=== PATIENT | male | born 1990 | race Caucasian/White ===

== ENCOUNTER 2021-01-04 12:39 | Emergency (ER) | payer MEDICAID ==
[~2021-01-04] VITALS: Ht 157.5 cm; Wt 70.0 kg
[2021-01-04] MEDS ORDERED: CHLORDIAZEPOXIDE 25MG CAPSULE PO ONE ×2 (13:00→18:00)
[2021-01-04 14:17] LABS: BASOPHILS % 0.4 % (0.0-2.0); HEMATOCRIT. 32.6 % (42.0-52.0); HEMOGLOBIN. 10.2 g/dL (14.0-18.0); LYMPHOCYTES % 27.8 % (20.0-50.0); MEAN CORPUSCULAR VOLUME 66.9 fL (80.0-94.0); MEAN PLATELET VOLUME 7.5 fl (7.4-10.4); MONOCYTES % 1.7 % (2.0-8.0); NEUTROPHILS % 70.1 % (40.0-76.0); PLATELET 349 x1000/uL (130-400); RED BLOOD CELL COUNT 4.87 mill/uL (4.7-6.1); RED CELL DISTRIBUTION WIDTH 20.1 % (11.6-14.6)
[2021-01-04 14:23] LABS: CHLORIDE 109 mEq/L (98-107)
[2021-01-04 14:41] LABS: PLATELET ESTIMATE NORMAL
[2021-01-04 14:48] LABS: ETHANOL BLOOD 382 mg/dL
[2021-01-04] MEDS ORDERED: LORAZEPAM 2MG/ML CPJ IV ONE (16:00)
[2021-01-04 17:00] VITALS: BP 115/70
== END 2021-01-04 18:29 | disposition home or self-care (01) ==
LOC: ER 12:39
DX: T51.91XA Toxic effect of unspecified alcohol, accidental (unintentional), initial encounter (principal); Y92.9 Unspecified place or not applicable; F10.10 Alcohol abuse, uncomplicated; Y90.8 Blood alcohol level of 240 mg/100 ml or more; Z88.4 Allergy status to anesthetic agent; Z88.8 Allergy status to other drugs, medicaments and biological substances
CPT/HCPCS: 36415; 80053; 80320; 83690; 85025; 93005; 96374; 99284; J2060; G0480